=== PATIENT | male | born 1995 | race Hispanic/Latino ===

== ENCOUNTER 2020-09-07 12:41 | Emergency (ER) | payer SELFPAY ==
[2020-09-07 16:57] LABS: SARS-CoV-2 PCR by NAA Not Detected (NotDetected)
== END 2020-09-07 13:14 | disposition home or self-care (01) ==
LOC: ERS 12:41
DX: R05 Cough (principal); R11.2 Nausea with vomiting, unspecified; Z20.822 Contact with and (suspected) exposure to COVID-19
CPT/HCPCS: 87635; 99284; U0003; U0005

== ENCOUNTER 2021-02-03 08:06 | Emergency (ER) | payer SELFPAY ==
[2021-02-03 14:45] LABS: SARS-CoV-2 PCR by NAA Not Detected (NotDetected)
== END 2021-02-03 08:46 | disposition home or self-care (01) ==
LOC: ERS 08:06
DX: R11.2 Nausea with vomiting, unspecified (principal); Z20.822 Contact with and (suspected) exposure to COVID-19
CPT/HCPCS: 99284; U0003; U0005

== ENCOUNTER 2021-06-30 13:43 | Emergency (ER) | payer SELFPAY ==
[2021-06-30] MEDS ORDERED: Ketorolac Tromethamine 30 MG/ML VIAL ONE (14:21)
[2021-06-30] MEDS ORDERED: Acetaminophen 500 MG TAB ONE (14:21)
== END 2021-06-30 14:45 | disposition home or self-care (01) ==
LOC: ERS 13:43
DX: S39.012A Strain of muscle, fascia and tendon of lower back, initial encounter (principal); X50.9XXA Other and unspecified overexertion or strenuous movements or postures, initial encounter
CPT/HCPCS: 96372; 99283; J1885

== ENCOUNTER 2022-10-19 11:42 | Emergency (ER) | payer SELFPAY | END 2022-10-19 12:56 | disposition home or self-care (01) | LOC: ERS 11:42 | DX: E11.65 Type 2 diabetes mellitus with hyperglycemia (principal); F17.210 Nicotine dependence, cigarettes, uncomplicated | CPT/HCPCS: 36416; 99284 ==